=== PATIENT | female | born 1980 | race Caucasian/White ===

== ENCOUNTER → 2019-06-13 | Outpatient (REF) | payer BC ==
[2019-06-13 14:11] LABS: C REACTIVE PROTEIN QUANTITATIV < 0.30 MG/DL (0.00-0.30); CPK CREATINE PHOSPHOKINASE 68 U/L (26-192); RHEUMATOID FACTOR QUANT < 10.0 IU/ML (<15.0); TOTAL PROTEIN 7.4 GM/DL (6.4-8.2)
[2019-06-15 10:01] LABS: ALBUMIN 4.31 GM/DL (3.29-5.55); ALBUMIN % 58.3 % (55.8-66.1); ALPHA-1-GLOBULIN % 4.6 % (2.9-4.9); ALPHA-1-GLOBULINS 0.34 GM/DL (0.17-0.41); ALPHA-2-GLOBULINS 0.83 GM/DL (0.42-0.99); ALPHA-2-GLOBULINS % 11.2 % (7.1-11.8); BETA-1-GLOBULINS 0.53 GM/DL (0.28-0.60); BETA-1-GLOBULINS % 7.1 % (4.7-7.2); BETA-2-GLOBULINS 0.38 GM/DL (0.19-0.55); BETA-2-GLOBULINS % 5.2 % (3.2-6.5); GAMMA GLOBULIN % 13.6 % (11.1-18.8); GAMMA GLOBULINS 1.01 GM/DL (0.65-1.58)
[2019-06-20 08:06] LABS: CYCLIC CITRULLINATED PEPTIDE 71 units (0-19); SSA SJOGRENS A <0.2 AI (0.0-0.9); SSB SJOGRENS B <0.2 AI (0.0-0.9)
== END ==
LOC: M SFHCRHEU 09:47
PROVIDERS: ATTEND Internal Medicine
DX: R76.8 Other specified abnormal immunological findings in serum (principal); M79.7 Fibromyalgia

== ENCOUNTER → 2019-07-04 | Outpatient (CLI) | payer BC ==
[2019-07-04 13:59] LABS: THYROID STIMULATING HORMONE 0.856 uIU/ML (0.358-3.740); TOTAL T3 118.6 NG/DL (60.0-181.0)
[2019-07-05 07:07] LABS: THYROID PEROXIDASE ANTIBODY < 28.0 U/ML (<60.0)
[2019-07-05 07:08] LABS: THYROGLOBULIN ANTIBODY < 15.0 U/ML (<60.0)
[2019-07-11 18:11] LABS: IGE RECEPTOR ABY 1 11.8 (<10)
== END ==
LOC: M LAB 11:44
PROVIDERS: ATTEND Allergy & Immunology Allergy
DX: L50.1 Idiopathic urticaria (principal)

== ENCOUNTER → 2019-07-06 | Outpatient (REF) | payer BC ==
[2019-07-06 20:22] LABS: APPEARANCE, URINE CLEAR (CLEAR); BACTERIA, URINE AUTO 1+ (NEGATIVE); BILIRUBIN, URINE AUTO NEGATIVE (NEGATIVE); BLOOD, URINE BLOOD NEGATIVE (NEGATIVE); COLOR, URINE YELLOW (YELLOW); GLUCOSE, URINE (UA) AUTO NEGATIVE (NEGATIVE); KETONE, URINE AUTO NEGATIVE (NEGATIVE); LEUKOCYTE ESTERASE, URINE AUTO NEGATIVE (NEGATIVE); NITRITE, URINE AUTO NEGATIVE (NEGATIVE); PROTEIN, URINE AUTO NEGATIVE (NEGATIVE); RBC, URINE AUTO 0 /HPF (0-3); SPECIFIC GRAVITY URINE AUTO 1.004 (1.002-1.035); SQUAMOUS EPITHELIAL CELL UR AU 1 /HPF (0-6); UROBILINOGEN, URINE AUTO 0.2 mg/dL (0.0-2.0); WBC, URINE AUTO 1 /HPF (0-3)
== END ==
LOC: M SFHCRHEU 08:37
PROVIDERS: ATTEND Internal Medicine
DX: L50.8 Other urticaria (principal)

== ENCOUNTER → 2019-11-03 | Outpatient (CLI) | payer BC ==
[~2019-11-03] MED LIST: AMBI5TAB PO; CYAN2500 SL; GASTROGRAFIN SOLUTION 30ML (Q9963) As Ordered ONE; HYDR1CAP25 PO; ISOVUE-370 76% 100ML VIAL As Ordered ONE; LEVOTAB10 PO; NEUR100C PO; PANT40TA29 PO; PROAAER10 INH
--- NOTE | 2019-11-10 11:48 | REP ---
CT ABDOMEN AND PELVIS WITH INTRAVENOUS (IV) AND ORAL CONTRAST HISTORY: Abnormal liver function studies. COMPARISON: No comparison abdominal imaging. CT CONTRAST DOSE: 100 mL of intravenous Isovue-[address] FINDINGS: Preliminary digital beamster radiograph shows clips in the right upper quadrant. The patient is status post gastric bypass procedure. There is minimal diffuse fatty infiltration of the liver. No focal liver mass lesion is seen. There are two small cysts in the superior aspect of the spleen. These measure 8 mm and 13 mm in greatest diameter respectively. The spleen is otherwise unremarkable. Normal adrenal glands are seen. No abnormality is noted in the pancreas. There is focal scarring at the upper and lower pole of the right kidney. There is an upper pole calculus of the right kidney associated with a cyst at the level of the upper pole scarring. The calculus measures 10 mm. The cyst measures 24 mm. This may be a calculus associated with a calyceal diverticulum. No hydronephrosis is seen on either side. No other calculus is seen. No retroperitoneal mass or adenopathy is seen. Normal appendix is seen retrocecal. Small and large intestinal bowel loops are unremarkable. A vaginal tampon is noted in place. No uterine or ovarian abnormality is seen. Urinary bladder is largely empty, but appears intact. No abdominal wall defect is seen. No bony destructive lesion. IMPRESSION: Mild diffuse fatty infiltration of the liver. Focal scarring right kidney. Stone possibly associated with a calyceal diverticulum right kidney. Post cholecystectomy and gastric bypass. Otherwise no significant finding. MTDD
== END ==
LOC: M RAD 13:09
PROVIDERS: ATTEND Internal Medicine Hematology & Oncology
DX: D50.9 Iron deficiency anemia, unspecified (principal); Z98.84 Bariatric surgery status

== ENCOUNTER → 2019-11-23 | Outpatient (CLI) | payer BC ==
[~2019-11-23] MED LIST changes: -GASTROGRAFIN SOLUTION 30ML (Q9963) As Ordered ONE; -ISOVUE-370 76% 100ML VIAL As Ordered ONE
--- NOTE | 2019-11-23 15:46 | REP ---
INDICATION: LT BREAST MASS,US GUIDED BIOPSY COMPARISON: Comparison sonography at [facility] October 22, 2021 showed a isoechoic to hypoechoic 1 cm nodule superficially at the site of a palpable lump. The patient is referred for ultrasound-guided needle biopsy.. TECHNIQUE: Pre-procedure sonography is performed. Patient reports palpable lumps in the 2 o'clock position the left breast are still present. FINDINGS: High-resolution soft tissue sonography in the 2 o'clock position in the left breast in the area of the palpable lump shows normal fibroglandular and subcutaneous tissue. No hypoechoic nodule, cyst, mass, or architectural distortion is seen by ultrasound. No sonographic target was identified. Accordingly, the biopsy was deferred. IMPRESSION: No sonographic target is identified. BI-RADS category 1 negative findings at the site of the palpable lump. Clinical correlation is advised. Follow-up mammography can be considered. There may be a role for breast MRI scanning in this patient with persistent history of palpable lump on self breast exam. If symptoms persist or progress, follow-up sonography could be performed as well. <Electronically signed by Jared Ramirez > 11/23/19 1753
== END ==
LOC: M WHCPRO 14:18
PROVIDERS: ATTEND Internal Medicine Hematology & Oncology
DX: N63.21 Unspecified lump in the left breast, upper outer quadrant (principal); Z53.9 Procedure and treatment not carried out, unspecified reason

== ENCOUNTER → 2019-12-27 | Outpatient (CLI) | payer BC ==
[~2019-12-27] MED LIST changes: +ISOVUE-370 76% 100ML VIAL As Ordered ONE
--- NOTE | 2019-12-28 05:23 | REP ---
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 COMPARISON: None TECHNIQUE: Axial contrast enhanced images from the thoracic inlet to the upper abdomen with coronal and sagittal reformations using 75 ml Isovue [address] intravenous [address] examination was performed using the following dose reduction techniques: Automated exposure control, adjustment of mA and/or kv according to the patient's size, and use of iterative reconstruction technique. FINDINGS: No significant axillary, hilar, or mediastinal adenopathy is appreciated. Further evaluation of the mediastinum demonstrates minimal atherosclerotic changes to the thoracic aorta and coronary arteries without aortic aneurysm, dissection, cardiomegaly or pericardial effusion. The bilateral lung calderon are well aerated with minimal posterior basilar dependent changes suggested. No consolidation, suspicious nodule or mass lesion. Mild early emphysematous changes cannot be excluded. Tracheobronchial tree is patent. No effusion. No pneumothorax. Surrounding musculoskeletal structures are intact. Upper abdomen demonstrates normal bilateral adrenal glands along with evidence for prior cholecystectomy and gastric bypass surgery. IMPRESSION: 1. No evidence for adenopathy. 2. Lung calderon suggest mild early emphysematous changes. <Electronically signed by Paul Arenas > 12/28/19 1253
== END ==
LOC: M RAD 14:06
PROVIDERS: ATTEND Specialist
DX: D50.9 Iron deficiency anemia, unspecified (principal)
CPT/HCPCS: 71260; Q9967

== ENCOUNTER → 2019-12-27 | Outpatient (CLI) | payer BC ==
[~2019-12-27] MED LIST changes: -ISOVUE-370 76% 100ML VIAL As Ordered ONE
[2019-12-27 16:07] LABS: RHEUMATOID FACTOR QUANT < 10.0 IU/ML (<15.0)
[2019-12-27 16:08] LABS: TOTAL PROTEIN 7.2 GM/DL (6.4-8.2)
[2019-12-27 16:20] LABS: VITAMIN B12 LEVEL 257 PG/ML
[2019-12-27 16:21] LABS: FOLATE 5.9 NG/ML
[2019-12-27 16:50] LABS: HEMOGLOBIN A1c 4.9 %
[2019-12-28 15:41] LABS: ALBUMIN 4.44 GM/DL (3.29-5.55); ALBUMIN % 61.6 % (55.8-66.1); ALPHA-1-GLOBULIN % 4.6 % (2.9-4.9); ALPHA-1-GLOBULINS 0.33 GM/DL (0.17-0.41); ALPHA-2-GLOBULINS 0.77 GM/DL (0.42-0.99); ALPHA-2-GLOBULINS % 10.7 % (7.1-11.8); BETA-1-GLOBULINS 0.42 GM/DL (0.28-0.60); BETA-1-GLOBULINS % 5.8 % (4.7-7.2); BETA-2-GLOBULINS 0.35 GM/DL (0.19-0.55); BETA-2-GLOBULINS % 4.8 % (3.2-6.5); GAMMA GLOBULIN % 12.5 % (11.1-18.8)
== END ==
LOC: M LAB 14:04
PROVIDERS: ATTEND Psychiatry & Neurology Neurology
DX: G90.09 Other idiopathic peripheral autonomic neuropathy (principal)

== ENCOUNTER → 2020-01-24 | Outpatient (CLI) | payer BC ==
[~2020-01-24] MED LIST changes: +HYDR-3363; +vitamin b-12 SQ
== END ==
LOC: M LABSMTC 12:18
PROVIDERS: ATTEND Anesthesiology
DX: Z01.812 Encounter for preprocedural laboratory examination (principal); Z20.828 Contact with and (suspected) exposure to other viral communicable diseases

== ENCOUNTER 2020-01-29 12:50 | Day surgery (SDC) | payer BC ==
[~2020-01-29] VITALS: Ht 162.6 cm; Wt 78.7 kg
[~2020-01-29 12:50] MED LIST changes: +NS 1,000 ML IV ONE
[2020-01-29] MEDS ORDERED: fentaNYL 100 MCG/2 ML INJECTION (J3010) As Ordered ONE (15:04)
[2020-01-29] MEDS ORDERED: propofoL 200 MG/20 ML VIAL As Ordered ONE (15:09)
[2020-01-29] MEDS ORDERED: LIDOCAINE 2% 100MG/5ML SDV (FOR ANES.) As Ordered ONE (15:30)
--- NOTE | 2020-01-29 16:15 | ROOR ---
Patient Name: Chloe Garcia Procedure Date: 01/29/2020 1:20 PM Date of : 1980 Age: 39 Room: [facility] Gender: Female Note Status: Finalized Procedure: Upper GI endoscopy Indications: Epigastric abdominal pain, Persistent vomiting Providers: Jose Elias Sales MD Referring MD: Thelma Lin Requesting Provider: Medicines: Monitored Anesthesia Care Complications: No immediate complications. Procedure: Pre-Anesthesia Assessment: - Prior to the procedure, a History and Physical was performed, and patient medications and allergies were reviewed. The patient is competent. The risks and benefits of the procedure and the sedation options and risks were discussed with the patient. All questions were answered and informed consent was obtained. Patient identification and proposed procedure were verified by the physician, the nurse and the anesthesiologist in the procedure room. Mental Status Examination: alert and oriented. Airway Examination: normal oropharyngeal airway and neck mobility. Respiratory Examination: clear to auscultation. CV Examination: normal. Prophylactic Antibiotics: The patient does not require prophylactic antibiotics. Prior Anticoagulants: The patient has taken no previous anticoagulant or antiplatelet agents. ASA Grade Assessment: II - A patient with mild systemic disease. After reviewing the risks and benefits, the patient was deemed in satisfactory condition to undergo the procedure. The anesthesia plan was to use monitored anesthesia care (MAC). Immediately prior to administration of medications, the patient was re-assessed for adequacy to receive sedatives. The heart rate, respiratory rate, oxygen saturations, blood pressure, adequacy of pulmonary ventilation, and response to care were monitored throughout the procedure. The physical status of the patient was re-assessed after the procedure. The Endoscope was introduced through the mouth, and advanced to the second part of duodenum. The upper GI endoscopy was accomplished without difficulty. The patient tolerated the procedure well. Findings: The examined esophagus was normal. Evidence of a gastric bypass was found. A gastric pouch with a small size was found. The staple line appeared intact. The gastrojejunal anastomosis was characterized by congestion, edema, friable mucosa, severe stenosis, ulceration and an intact staple line. This was traversed. The wkbst-vo-gnltyyd limb measured 5 cm from the anastomosis and. The jejunojejunal anastomosis was characterized by congestion, erosion and erythema. The cfujpjtv-vc-knmpgud limb was not examined as it could not be found. Biopsies were taken with a cold forceps for histology. Biopsies were taken with a cold forceps for Helicobacter pylori testing. Verification of patient identification for the specimen was done by the physician and nurse using the patient's name, date and medical record number. Estimated blood loss was minimal. Normal mucosa was found in the jejunum. Impression: - Normal esophagus. - Gastric bypass with a small-sized pouch and intact staple line. Gastrojejunal anastomosis characterized by congestion, edema, friable mucosa, ulceration, severe stenosis and an intact staple line. Biopsied. - Normal mucosa was found in the jejunum. Recommendation: - Patient has a contact number available for emergencies. The signs and symptoms of potential delayed complications were discussed with the patient. Return to normal activities tomorrow. Written discharge instructions were provided to the patient. - Clear liquid diet for 1 day, then advance as tolerated to Post gastric bypass diet (small frequent meals and avoid fatty/ fried foods). - Continue present medications. - Use Protonix (pantoprazole) 40 mg PO twice daily - to be taken in morning (1/2 hour before breakfast) and at bedtime ( atleast 3 hours after last meal) for 3 months. - Use sucralfate suspension 1 gram PO QID for 4 weeks. - Repeat upper endoscopy in 3 months to evaluate the response to therapy and possible dilation of stricture. - Return to GI clinic in [facility] (address [address], [address], [place], [facility]) in 4 -- 6 weeks. Please call GI clinic @ [phone] for apppointment date and time. - Return to primary care physician. Procedure Code(s): --- Professional --- 18063, Esophagogastroduodenoscopy, flexible, transoral; with biopsy, single or multiple Diagnosis Code(s): --- Professional --- K28.9, Gastrojejunal ulcer, unspecified as acute or chronic, without hemorrhage or perforation K95.89, Other complications of other bariatric procedure Z98.84, Bariatric surgery status R10.13, Epigastric pain R11.15, Cyclical vomiting syndrome unrelated to migraine CPT copyright 2019 [employer]. All rights reserved. The codes documented in this report are preliminary and upon remote inpatient coder review may be revised to meet current compliance requirements. Jose Elias Sales MD Jose Elias Sales MD 01/29/2020 4:15:32 PM Electronically signed by Jose Elias Sales MD Number of Addenda: 0 Note Initiated On: 01/29/2020 1:20 PM Estimated Blood Loss: Estimated blood loss was minimal.
[2020-01-29 16:22] VITALS: BP 114/77
== END 2020-01-29 16:24 | disposition home or self-care (01) ==
LOC: M OPP 12:50
PROVIDERS: ATTEND Internal Medicine Gastroenterology
DX: K28.9 Gastrojejunal ulcer, unspecified as acute or chronic, without hemorrhage or perforation (principal); K95.89 Other complications of other bariatric procedure; Z98.84 Bariatric surgery status; R10.13 Epigastric pain; R11.15 Cyclical vomiting syndrome unrelated to migraine; K74.60 Unspecified cirrhosis of liver; M79.7 Fibromyalgia; F17.210 Nicotine dependence, cigarettes, uncomplicated; Z79.899 Other long term (current) drug therapy; Z87.442 Personal history of urinary calculi
CPT/HCPCS: 43239; 88305; J3010

== ENCOUNTER → 2020-03-13 | Outpatient (REF) | payer BC ==
[~2020-03-13] MED LIST changes: -NS 1,000 ML IV ONE
[2020-03-13 12:52] LABS: BASO # 0.1 10^3/uL (0.0-0.2); BASO % 0.7 % (0.0-1.0); EOS # 0.1 10^3/uL (0.0-0.5); EOS % 1.1 % (0.0-3.0); HEMATOCRIT 43.4 % (36.0-47.0); HEMOGLOBIN 13.9 g/dl (12.0-15.5); LYMPH # 1.5 10^3/uL (1.5-5.0); LYMPH % 20.3 % (24.0-44.0); MEAN CORPUSCULAR HEMOGLOBIN 29.7 pg (27.0-33.0); MEAN CORPUSCULAR VOLUME 92.7 fl (80.0-96.0); MONO # 0.4 10^3/uL (0.0-0.8); MONO % 4.9 % (0.0-5.0); NEUTROPHILS # 5.4 10^3/uL (1.5-8.5); NEUTROPHILS % 72.7 % (36.0-66.0); PLATELET COUNT, AUTOMATED 158 10^3/uL (150-450); RED BLOOD COUNT 4.68 10^6/uL (4.00-5.40); WHITE BLOOD COUNT 7.4 10^3/uL (4.0-10.0)
[2020-03-13 13:20] LABS: ALBUMIN 4.2 GM/DL (3.2-5.2); ALT/SGPT 84 U/L (12-78); BILIRUBIN,TOTAL 0.4 MG/DL (0.2-1.0); BLOOD UREA NITROGEN 5 MG/DL (7-18); CALCIUM LEVEL 9.2 MG/DL (8.5-10.1); CARBON DIOXIDE LEVEL 25 MEQ/L (21-32); CHLORIDE LEVEL 108 MEQ/L (98-107); COMPLEMENT C3 105 MG/DL (90-180); COMPLEMENT C4 21 MG/DL (10-40); CPK CREATINE PHOSPHOKINASE 34 U/L (26-192); CREATININE FOR GFR 0.56 MG/DL (0.55-1.30); GLOMERULAR FILTRATION RATE > 60.0 (>58); GLUCOSE, FASTING 90 MG/DL (70-100); POTASSIUM SERUM 3.8 MEQ/L (3.5-5.1); RHEUMATOID FACTOR QUANT 10.1 IU/ML (<15.0); SODIUM LEVEL 140 MEQ/L (136-145); TOTAL PROTEIN 7.4 GM/DL (6.4-8.2)
[2020-03-13 13:30] LABS: ERYTHROCYTE SEDIMENTATION RATE 10 mm/hr (0-20)
[2020-03-13 14:53] LABS: THYROID PEROXIDASE ANTIBODY < 28.0 U/ML (<60.0); TOTAL 25(OH) VITAMIN D 11.9 NG/ML (30.0-100.0)
[2020-03-13 15:04] LABS: HEPATITIS B SURFACE ANTIGEN NEGATIVE (NEGATIVE)
[2020-03-13 15:32] LABS: HEPATITIS C VIRUS ABY INDEX < 0.0 INDEX (<0.8)
[2020-03-19 20:11] LABS: ANA (HEP2) Negative (.); ANTI DS-DNA AB Negative (Negative); ANTI-MITOCHONDRIAL ANTIBODY <20.0 Units (0.0-20.0); ANTI-SMOOTH MUSCLE ANTIBODY 5 Units (0-19); BETA-2 GLYCOPROTEIN I ABY IGA <9 (0-25); BETA-2 GLYCOPROTEIN I ABY IGG <9 (0-20); BETA-2 GLYCOPROTEIN I ABY IGM <9 (0-32); CARDIOLIPIN IGA ANTIBODY <9 APL U/mL (0-11); CARDIOLIPIN IGG ANTIBODY <9 GPL U/mL (0-14); CARDIOLIPIN IGM ANTIBODY <9 MPL U/mL (0-12); CYCLIC CITRULLINATED PEPTIDE 51 units (0-19); HEPATITIS B CORE ANTIBODY IGG Negative (Negative); HLA-B27 Negative (.); IgG P18 AB Absent (.); IgG P23 AB Present (.); IgG P28 AB Absent (.); IgG P30 AB Absent (.); IgG P39 AB Absent (.); IgG P41 AB Absent (.); IgG P45 AB Absent (.); IgG P66 AB Absent (.); IgG P93 AB Absent (.); IgM P23 AB Absent (.); IgM P39 AB Absent (.); IgM P41 AB Absent (.); LYME IgG WB INTERPRETATION Negative (.); LYME IgM WB INTERPRETATION Negative (.); RNP ANTIBODY < 0.2 AI (0.0-0.9); SMITHS ANTIBODY < 0.2 AI (0.0-0.9); SSA SJOGRENS A <0.2 AI (0.0-0.9); SSB SJOGRENS B <0.2 AI (0.0-0.9); TRYPTASE 3.4 ug/L (2.2-13.2)
== END ==
LOC: M SFHCRHEU 10:10
PROVIDERS: ATTEND Internal Medicine
DX: M25.50 Pain in unspecified joint (principal); R53.82 Chronic fatigue, unspecified; L29.9 Pruritus, unspecified

== ENCOUNTER → 2020-03-27 | Outpatient (REF) | payer BC ==
[2020-03-27 18:18] LABS: ALBUMIN 3.9 GM/DL (3.2-5.2); ALT/SGPT 81 U/L (12-78); BILIRUBIN,DIRECT < 0.1 MG/DL (0.0-0.2); BILIRUBIN,TOTAL 0.2 MG/DL (0.2-1.0)
[2020-03-27 18:24] LABS: VITAMIN B12 LEVEL 346 PG/ML
[2020-03-27 18:25] LABS: FOLATE 5.5 NG/ML
== END ==
LOC: M LAB REF 16:26
PROVIDERS: ATTEND Internal Medicine Gastroenterology
DX: R10.13 Epigastric pain (principal)

== ENCOUNTER → 2020-04-03 | Outpatient (CLI) | payer BC ==
[2020-04-03 08:55] VITALS: BP 128/82
--- NOTE | 2020-04-03 16:22 | REP ---
INDICATION: N63.0 LT BREAST MASS,US GUIDED BIOPSY. Palpable abnormality in the left breast at 1 o'clock position, 6 cm from the nipple. COMPARISON: Comparison sonography November 23, 2019.. TECHNIQUE: Sonographic guidance. FINDINGS: Sonographic guidance is provided to Dr. Desir performed ultrasound monitored, palpation directed needle biopsy procedure and clip placement. IMPRESSION: Sonographic guidance. <Electronically signed by Jared Ramirez > 04/03/20 [id number]
--- NOTE | 2020-04-05 10:23 | REP ---
INDICATION: N63.0 LT BREAST MASS,POST US GUIDED BIOPSY. COMPARISON: Comparison mammography December 25, 2019. TECHNIQUE: Craniocaudal and mediolateral views of the left breast are obtained post biopsy. This mammogram was interpreted with the aid of an FDA-approved computer-aided detection system. FINDINGS: Two views of the left breast demonstrate a needle biopsy marker clip in the upper-outer quadrant of the left breast. IMPRESSION: There is a needle biopsy marker clip in the upper-outer quadrant of the left breast. RECOMMENDATION: None. <Electronically signed by Jared Ramirez > 04/05/20 1029
--- NOTE | 2020-04-06 14:35 | ROOPDOC ---
[facility] Report Of Operation Report of Operation DATE OF PROCEDURE: 04/03/20 DIAGNOSIS: left breast palpable lesion PROCEDURE: Ultrasound guided and palpation guided biopsy of left breast palpable lesion with clip placement SURGEON: Criss Rausch BLOOD LOSS: minimal COMPLICATIONS: none Lidocaine 1% LOT [id number] Expiration 05/2023 Sodium Bicarbonate 4% LOT [id number] Expiration 05/2020 Hydromark clip LOT [id number] Expiration 11/2022 SHAPE : 3 Bx device: BARD [id number] x10 cm LOT [id number] Expiration 12/2022 Informed consent was obtained. The most common risk and possible complications including bleeding, hematoma, bruising, infection, injury to surrounding structures were explained to the patient and the patient expressed understanding. Patient was placed on the bed in the supine position. Appropriate time out was done stating patients name, date of , and the procedure to be performed. Location of the palpable mass in the left breast at 1:00 6CFN was confirmed by the patient and me. The left breast was prepped and draped in the usual fashion. The ultrasound was used to assure safe biopsy trajectory and to avoid lung injury. Plain Lidocaine 1% and 8.4% sodium bicarbonate 10:1 mix was used to anesthetize the skin, the biopsy site and tissues along the anticipated biopsy tract. Small skin incision was made with blade number 11. BARD Marquee 14G cannula with introducer ([id number]) was inserted through the incision and advanced under the ultrasound guidance to position immediately adjacent to the lesion. Next, the introducer was removed and BARD Marquee 14G biopsy device was places in the cannula. Pre-biopsy imaging, and post-biopsy imaging were captured. Five good core biopsies were taken at various levels of the lesion. Specimen was placed in formaldehyde, labeled with appropriate biopsy site and patients name, and sent to pathology for evaluation. Next, the biopsy device was withdrawn and a clip introducer was inserted into the biopsy site via the cannula. The SHAPE 3 Hydromark clip was deployed under sonographic guidance. Post-clip placement image was captured. Manual pressure over the biopsy cavity and tract was held after the clip introducer was withdrawn. No bleeding was noted upon removal of the pressure. Post-biopsy mammogram of the left breast was obtained and showed clip in expected position. Postprocedural dressing was placed. Patient tolerated procedure well. Discharge instructions were discussed with the patient and the patient expressed understanding. CRISS RAUSCH DO Apr 06, 2020 14:35
== END ==
LOC: M WHCPRO 07:36
PROVIDERS: ATTEND Surgery
DX: N60.82 Other benign mammary dysplasias of left breast (principal); N63.20 Unspecified lump in the left breast, unspecified quadrant

== ENCOUNTER → 2020-04-05 | Outpatient (CLI) | payer BC ==
--- NOTE | 2020-04-05 17:22 | REP ---
INDICATION: ABNORMAL LIVER STUDIES, EPIGASTRIC PAIN. Abnormal findings on diagnostic imaging of the digestive tract. COMPARISON: Comparison CT study abdomen pelvis November 03, 2019.. TECHNIQUE: Axial and coronal T1 and T2 weighted sequences include spin echo, fast spin echo, diffusion, in and out of phase, and dynamically acquired sequential postcontrast images. Gadolinium enhancement dose is 15 mL of intravenous ProHance. FINDINGS: No focal liver mass lesion is seen. The gallbladder is surgically absent. There is a calculus within a cystic area in the upper pole the right kidney consistent with a caliceal diverticulum containing a calculus. This is unchanged from the comparison CT study. There is some cortical scarring of the right kidney. No other renal abnormality is observed. No pancreatic abnormality is seen. There are small. There are 2 small peripheral cyst at the superior aspect of the spleen. The largest of these measures 1.4 cm in greatest diameter. There is no evidence of ascites or upper abdominal adenopathy. The common bile duct is 10 mm in greatest diameter which is at the upper range of normal post cholecystectomy. There is minimal prominence of the intrahepatic bile ducts unchanged from the comparison CT study. No adrenal lesion is observed. IMPRESSION: Post cholecystectomy. Borderline common bile duct, 10 mm. 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 Some mild cortical scarring of the right kidney. Small capsular cysts superior aspect of the spleen. Otherwise negative. <Electronically signed by Jared Ramirez > 04/05/20 [id number]
== END ==
LOC: M PLARAD 13:56
PROVIDERS: ATTEND Internal Medicine Gastroenterology
DX: R10.13 Epigastric pain (principal); R93.3 Abnormal findings on diagnostic imaging of other parts of digestive tract; R94.5 Abnormal results of liver function studies; Z90.49 Acquired absence of other specified parts of digestive tract; N20.0 Calculus of kidney; D73.4 Cyst of spleen

== ENCOUNTER → 2020-06-23 | Outpatient (CLI) | payer BC | LOC: M LABSMTC 09:11 | PROVIDERS: ATTEND Anesthesiology | DX: Z01.818 Encounter for other preprocedural examination (principal); Z20.822 Contact with and (suspected) exposure to COVID-19 ==

== ENCOUNTER 2020-06-28 06:07 | Day surgery (SDC) | payer BC ==
[~2020-06-28] VITALS: Ht 162.6 cm; Wt 77.9 kg
[~2020-06-28 06:07] MED LIST changes: +LIDOCAINE 1% MDV 20ML VIAL SQ PRN; +LR 1,000 ML IV ONE; +NS 1,000 ML IV ONE
[2020-06-28] MEDS ORDERED: ISOVUE-300 61% 50ML VIAL As Ordered ONE (06:59)
[2020-06-28] MEDS ORDERED: fentaNYL 100 MCG/2 ML INJECTION (J3010) As Ordered ONE (07:10)
[2020-06-28] MEDS ORDERED: MIDAZOLAM INJ 2MG/2ML VIAL (J2250 PER 1MG) As Ordered ONE (07:10)
[2020-06-28] MEDS ORDERED: ROCURONIUM BROMIDE 50 MG/5 ML VIAL As Ordered ONE (07:10)
[2020-06-28] MEDS ORDERED: propofoL 200 MG/20 ML VIAL As Ordered ONE (07:10)
[2020-06-28] MEDS ORDERED: LIDOCAINE 2% 100MG/5ML SDV (FOR ANES.) As Ordered ONE (07:10)
[2020-06-28] MEDS ORDERED: dexameTHASONE 4 MG/ML 1ML VIAL (J1100 PER 1MG) As Ordered ONE (07:19)
[2020-06-28] MEDS ORDERED: ONDANSETRON 4MG/2ML VIAL As Ordered ONE (07:19)
[2020-06-28] MEDS ORDERED: METOCLOPRAMIDE INJ 10MG/2ML VIAL (J2765 PER 1) As Ordered ONE (07:54)
[2020-06-28] MEDS ORDERED: SUGAMMADEX SODIUM 500 MG/5 ML VIAL (BRIDION) As Ordered ONE (07:54)
[2020-06-28] MEDS ORDERED: PHENYLephrine 500MCG 5ML (100MCG/ML) SYRINGE As Ordered ONE (07:55)
--- NOTE | 2020-06-28 08:55 | ROOR ---
Patient Name: Chloe Garcia Procedure Date: 06/28/2020 7:50 AM Date of : 1980 Age: 40 Room: [facility] Gender: Female Note Status: Finalized Procedure: ERCP Indications: Biliary dilation on Computed Tomogram Scan, Abnormal MRCP Providers: Jose Elias Sales MD Referring MD: Jose Elias Sales MD Requesting Provider: Medicines: Monitored Anesthesia Care Complications: No immediate complications. Procedure: Pre-Anesthesia Assessment: - Prior to the procedure, a History and Physical was performed, and patient medications and allergies were reviewed. The patient is competent. The risks and benefits of the procedure and the sedation options and risks were discussed with the patient. All questions were answered and informed consent was obtained. Patient identification and proposed procedure were verified by the physician, the nurse and the anesthesiologist in the procedure room. Mental Status Examination: alert and oriented. Airway Examination: normal oropharyngeal airway and neck mobility. Respiratory Examination: clear to auscultation. CV Examination: normal. Prophylactic Antibiotics: The patient does not require prophylactic antibiotics. Prior Anticoagulants: The patient has taken no previous anticoagulant or antiplatelet agents. ASA Grade Assessment: II - A patient with mild systemic disease. After reviewing the risks and benefits, the patient was deemed in satisfactory condition to undergo the procedure. The anesthesia plan was to use monitored anesthesia care (MAC). Immediately prior to administration of medications, the patient was re-assessed for adequacy to receive sedatives. The heart rate, respiratory rate, oxygen saturations, blood pressure, adequacy of pulmonary ventilation, and response to care were monitored throughout the procedure. The physical status of the patient was re-assessed after the procedure. The Endoscope was introduced through the mouth, and advanced to the duodenum and used to locate the major papilla. The ERCP was accomplished without difficulty. The patient tolerated the procedure well. Findings: The grade checker film was normal. A standard esophagogastroduodenoscopy scope was used for the examination of the upper gastrointestinal tract. The scope was passed under direct vision through the upper GI tract. The examined esophagus was normal. A standard esophagogastroduodenoscopy scope was used for the examination of the upper gastrointestinal tract. The scope was passed under direct vision through the upper GI tract. Evidence of a Jas-en-Y gastrojejunostomy was found. The gastrojejunal anastomosis was characterized by erythema, moderate stenosis and an intact staple line. This was traversed. The zwctd-wd-vcozqxw limb was characterized by healthy appearing mucosa. The jejunojejunal anastomosis was characterized by healthy appearing mucosa. The hocgzuxm-of-rlesash limb was examined 45 cm from the anastomosis and was characterized by healthy appearing mucosa. A TTS dilator was passed through the scope. Dilation with an 18-19-20 mm anastomotic balloon dilator was performed under fluoroscopic guidance at the anastomosis. The dilation site was examined following endoscope reinsertion and showed moderate improvement in luminal narrowing. A standard esophagogastroduodenoscopy scope was used for the examination of the upper gastrointestinal tract. The scope was passed under direct vision through the upper GI tract. -- Both the anastomotic limbs were examinaed under fluoroscopy but could not identify / locate the ampulla. Impression: - Normal esophagus. - Jas-en-Y gastrojejunostomy with gastrojejunal anastomosis characterized by erythema, moderate stenosis and an intact staple line. - Dilation performed at the anastomosis. - Both the anastomotic limbs were examinaed under fluoroscopy but could not identify / locate the ampulla. Recommendation: - The patient will be observed post-procedure, until all discharge criteria are met. - Patient has a contact number available for emergencies. The signs and symptoms of potential delayed complications were discussed with the patient. Return to normal activities tomorrow. Written discharge instructions were provided to the patient. - Avoid aspirin and nonsteroidal anti-inflammatory medicines. - Clear liquid diet for 1 day, then advance as tolerated to Post gastric bypass diet (small frequent meals and avoid fatty/ fried foods). - Use Protonix (pantoprazole) 40 mg PO twice daily - to be taken in morning (1/2 hour before breakfast) and at bedtime ( atleast 3 hours after last meal) for 8 weeks. - Telephone GI clinic if symptomatic. - Return to primary care physician. Procedure Code(s): --- Professional --- 23849, Esophagogastroduodenoscopy, flexible, transoral; with dilation of gastric/duodenal stricture(s) (eg, balloon, bougie) 67419, 26, Intraluminal dilation of strictures and/or obstructions (eg, esophagus), radiological supervision and interpretation Diagnosis Code(s): --- Professional --- Z98.0, Intestinal bypass and anastomosis status K83.8, Other specified diseases of biliary tract R93.2, Abnormal findings on diagnostic imaging of liver and biliary tract CPT copyright 2019 [employer]. All rights reserved. The codes documented in this report are preliminary and upon outer diameter grinder review may be revised to meet current compliance requirements. Jose Elias Sales MD Jose Elias Sales MD 06/28/2020 8:54:56 AM Electronically signed by Jose Elias Sales MD Number of Addenda: 0 Note Initiated On: 06/28/2020 7:50 AM Estimated Blood Loss: Estimated blood loss: none.
--- NOTE | 2020-06-28 09:06 | REP ---
INDICATION: ERCP AND EGD IN OR. COMPARISON: None. TECHNIQUE: Multiple C-arm views performed of the abdomen. FINDINGS: An endoscope is visualized overlying the abdomen. Air-filled small bowel is present. IMPRESSION: 27 seconds fluoroscopy time utilized. <Electronically signed by Orlando Queen > 06/28/20 0903
[2020-06-28] MEDS ORDERED: PERCOCET 5MG/325MG TAB PO PRN (09:15)
[2020-06-28] MEDS ORDERED: LR 1,000 ML IV SCH (09:15)
[2020-06-28] MEDS ORDERED: ONDANSETRON 4MG/2ML VIAL IV PRN (09:15)
[2020-06-28] MEDS: fentaNYL 100 MCG/2 ML INJECTION (J3010) IV PRN ×4 (09:17→09:33)
[2020-06-28 10:20] VITALS: BP 116/73
[2020-07-04] MEDS ORDERED: URSO300C3 PO (08:46)
== END 2020-06-28 10:37 | disposition home or self-care (01) ==
LOC: M SDC 06:07
PROVIDERS: ATTEND Internal Medicine Gastroenterology
DX: K83.8 Other specified diseases of biliary tract (principal); R93.2 Abnormal findings on diagnostic imaging of liver and biliary tract; Z98.0 Intestinal bypass and anastomosis status; F32.9 Major depressive disorder, single episode, unspecified; E07.9 Disorder of thyroid, unspecified; R00.2 Palpitations; K74.60 Unspecified cirrhosis of liver; R94.5 Abnormal results of liver function studies; R10.9 Unspecified abdominal pain; R11.10 Vomiting, unspecified; E53.8 Deficiency of other specified B group vitamins; M54.9 Dorsalgia, unspecified; M79.7 Fibromyalgia; Z87.442 Personal history of urinary calculi; F17.210 Nicotine dependence, cigarettes, uncomplicated; Z98.84 Bariatric surgery status; Z79.899 Other long term (current) drug therapy
CPT/HCPCS: 43245; 74330; J1100; J2250; J2370; J2405; J2765; J3010; Q9967

== ENCOUNTER → 2020-09-24 | Outpatient (CLI) | payer BC ==
[~2020-09-24] MED LIST changes: -LIDOCAINE 1% MDV 20ML VIAL SQ PRN; -LR 1,000 ML IV ONE; -NS 1,000 ML IV ONE; +URSO300C3 PO
[2020-09-24 11:38] LABS: BASO # 0.1 10^3/uL (0.0-0.2); BASO % 0.8 % (0.0-1.0); EOS # 0.1 10^3/uL (0.0-0.5); HEMATOCRIT 42.9 % (36.0-47.0); HEMOGLOBIN 13.9 g/dl (12.0-15.5); LYMPH # 1.8 10^3/uL (1.5-5.0); LYMPH % 22.3 % (24.0-44.0); MEAN CORPUSCULAR HEMOGLOBIN 29.3 pg (27.0-33.0); MEAN CORPUSCULAR HGB CONC 32.4 g/dl (32.0-36.5); MEAN CORPUSCULAR VOLUME 90.5 fl (80.0-96.0); MONO # 0.4 10^3/uL (0.0-0.8); MONO % 4.9 % (2.0-8.0); NEUTROPHILS # 5.6 10^3/uL (1.5-8.5); NEUTROPHILS % 70.5 % (36.0-66.0); PLATELET COUNT, AUTOMATED 173 10^3/uL (150-450); RED BLOOD COUNT 4.74 10^6/uL (4.00-5.40); WHITE BLOOD COUNT 7.9 10^3/uL (4.0-10.0)
[2020-09-24 12:10] LABS: ALBUMIN 3.7 GM/DL (3.2-5.2); ALT/SGPT 39 U/L (12-78); BILIRUBIN,TOTAL 0.4 MG/DL (0.2-1.0); BLOOD UREA NITROGEN 4 MG/DL (7-18); C REACTIVE PROTEIN QUANTITATIV 1.16 MG/DL (0.00-0.30); CALCIUM LEVEL 8.7 MG/DL (8.5-10.1); CARBON DIOXIDE LEVEL 26 MEQ/L (21-32); CHLORIDE LEVEL 110 MEQ/L (98-107); CPK CREATINE PHOSPHOKINASE 52 U/L (26-192); GLOMERULAR FILTRATION RATE > 60.0 (>58); GLUCOSE, FASTING 90 MG/DL (70-100); POTASSIUM SERUM 3.5 MEQ/L (3.5-5.1); SODIUM LEVEL 141 MEQ/L (136-145); TOTAL PROTEIN 6.9 GM/DL (6.4-8.2)
[2020-09-24 12:17] LABS: TOTAL 25(OH) VITAMIN D 67.4 NG/ML (30.0-100.0)
[2020-09-24 12:18] LABS: ERYTHROCYTE SEDIMENTATION RATE 12 mm/hr (0-20)
--- NOTE | 2020-09-24 21:40 | REP ---
INDICATION: PAIN IN UNSPECIFIED JOINT *LABS 1ST, XRY 2ND*. COMPARISON: None. TECHNIQUE: Four views of the bilateral sacroiliac joints. FINDINGS: Sacroiliac joints are symmetric and normal/age-appropriate. Surrounding osseous structures are intact and relatively normal. IMPRESSION: Normal symmetric bilateral sacroiliac joints. <Electronically signed by Paul Arenas > 09/24/20 [id number]
--- NOTE | 2020-09-24 21:49 | REP ---
INDICATION: PAIN IN UNSPECIFIED JOINT *LABS 1ST, XRY 2ND* COMPARISON: None. TECHNIQUE: AP, lateral, flexion/extension, bilateral oblique, and coned-down views. FINDINGS: Alignment and lordosis is maintained. The vertebral bodies including transverse process and spinous processes are intact and normal. There is no evidence for acute fracture / compression injury or subluxation. No evidence for spondylolysis or spondylolisthesis. Generalized age-related changes include very subtle increased sclerosis to the endplates with very subtle marginal spurring and mild facet hypertrophy. IMPRESSION: Mild age-related changes. <Electronically signed by Paul Arenas > 09/24/20 [id number]
--- NOTE | 2020-09-24 21:50 | REP ---
INDICATION: PAIN IN UNSPECIFIED JOINT *LABS 1ST, XRY 2ND* COMPARISON: None. TECHNIQUE: AP, lateral, bilateral oblique views right and left hand. FINDINGS: Osseous structures, joint spaces, and surrounding soft tissues are essentially age-appropriate with mild age-related changes noted. Deformity to the right 5th metacarpal bone may represent old healed fracture. No acute fracture or dislocation. IMPRESSION: Essentially symmetric age-related changes. No significant overt osteoarthritic findings noted. <Electronically signed by Paul Arenas > 09/24/20 [id number]
--- NOTE | 2020-09-24 21:54 | REP ---
INDICATION: PAIN IN UNSPECIFIED JOINT *LABS 1ST, XRY 2ND* COMPARISON: None. TECHNIQUE: AP, lateral, bilateral oblique views right and left foot. FINDINGS: Right foot demonstrates essentially age-appropriate osseous structures, joint spaces, and surrounding soft tissues. Evidence for prior open reduction and fixation involving medial malleolus and distal fibula. Lateral view demonstrates small calcaneal heel spur. Left foot demonstrates essentially age-appropriate osseous structures, joint spaces, and surrounding soft tissues. No overt arthritic changes. No evidence for acute or healed injury. Lateral view demonstrates small to moderate calcaneal heel spur. IMPRESSION: No significant osteoarthritic degenerative changes. As above. <Electronically signed by Paul Arenas > 09/24/20 [id number]
== END ==
LOC: M LAB 11:12
PROVIDERS: ATTEND Internal Medicine Rheumatology
DX: M77.31 Calcaneal spur, right foot (principal); M77.32 Calcaneal spur, left foot; M25.50 Pain in unspecified joint; E55.9 Vitamin D deficiency, unspecified

== ENCOUNTER → 2020-10-17 | Outpatient (CLI) | payer BC ==
--- NOTE | 2020-10-17 09:05 | REP ---
INDICATION: Six-month follow-up biopsy clip placement left breast 1 o'clock. COMPARISON: 04/03/2020 TECHNIQUE: Focused left breast ultrasonography was obtained at the 1 o'clock position in the region of a previous biopsy site which was performed 04/03/2020. FINDINGS: The prior exam showed a biopsy needle and deployment of a post biopsy clip at the 1 o'clock position. Today's exam shows an echogenic focus seen in left breast at the 1 o'clock position consistent with an unchanged biopsy clip. No abnormalities are identified. IMPRESSION: As above. Follow-up of a deployed biopsy clip. <Electronically signed by Oli Jamison > 10/17/20 [id number]
== END ==
LOC: M WHC 07:49
PROVIDERS: ATTEND Surgery
DX: N63.20 Unspecified lump in the left breast, unspecified quadrant (principal)

== ENCOUNTER 2021-02-04 11:24 | Emergency (ER) | payer BC ==
[~2021-02-04] VITALS: Ht 157.5 cm; Wt 74.5 kg
[2021-02-04 13:06] LABS: BASO % 0.4 % (0.0-1.0); EOS # 0.1 10^3/uL (0.0-0.5); EOS % 1.2 % (0.0-3.0); HEMATOCRIT 44.5 % (36.0-47.0); HEMOGLOBIN 14.5 g/dl (12.0-15.5); LYMPH # 1.7 10^3/uL (1.5-5.0); LYMPH % 15.6 % (24.0-44.0); MEAN CORPUSCULAR HEMOGLOBIN 28.8 pg (27.0-33.0); MEAN CORPUSCULAR HGB CONC 32.6 g/dl (32.0-36.5); MEAN CORPUSCULAR VOLUME 88.5 fl (80.0-96.0); MONO # 0.5 10^3/uL (0.0-0.8); MONO % 4.8 % (2.0-8.0); NEUTROPHILS # 8.6 10^3/uL (1.5-8.5); NEUTROPHILS % 77.5 % (36.0-66.0); PLATELET COUNT, AUTOMATED 225 10^3/uL (150-450); RED BLOOD COUNT 5.03 10^6/uL (4.00-5.40); WHITE BLOOD COUNT 11.1 10^3/uL (4.0-10.0)
[2021-02-04 13:38] LABS: AMPHETAMINES LEVEL URINE NEGATIVE (NEGATIVE); BARBITURATES URINE NEGATIVE (NEGATIVE); BENZODIAZEPINES URINE NEGATIVE (NEGATIVE); CANNABINOIDS URINE POSITIVE (NEGATIVE); COCAINE METABOLITE URINE NEGATIVE (NEGATIVE); METHADONE URINE NEGATIVE (NEGATIVE); OPIATES URINE NEGATIVE (NEGATIVE); PHENCYCLIDINE URINE NEGATIVE (NEGATIVE)
[2021-02-04 13:48] LABS: ALBUMIN 3.9 GM/DL (3.2-5.2); ALT/SGPT 70 U/L (12-78); BILIRUBIN,DIRECT 0.3 MG/DL (0.0-0.2); BILIRUBIN,TOTAL 0.4 MG/DL (0.2-1.0); BLOOD UREA NITROGEN 4 MG/DL (7-18); CALCIUM LEVEL 9.3 MG/DL (8.5-10.1); CARBON DIOXIDE LEVEL 27 MEQ/L (21-32); CHLORIDE LEVEL 108 MEQ/L (98-107); CREATININE FOR GFR 0.47 MG/DL (0.55-1.30); GLOMERULAR FILTRATION RATE > 60.0 (>58); GLUCOSE, FASTING 79 MG/DL (70-100); POTASSIUM SERUM 3.9 MEQ/L (3.5-5.1); SODIUM LEVEL 142 MEQ/L (136-145); THYROID STIMULATING HORMONE 0.669 uIU/ML (0.358-3.740); TOTAL 25(OH) VITAMIN D 38.6 NG/ML (30.0-100.0); TOTAL PROTEIN 7.5 GM/DL (6.4-8.2)
[2021-02-04 13:49] LABS: VITAMIN B12 LEVEL 518 PG/ML (247-911)
[2021-02-04 13:50] LABS: FOLATE 6.4 NG/ML (>5.4)
--- NOTE | 2021-02-04 15:57 | REPVR ---
PROCEDURE INFORMATION: Exam: MR Head Without Contrast Exam date and time: 02/04/2021 2:56 PM Age: 40 years old Clinical indication: Dizziness TECHNIQUE: Imaging protocol: MR of the head without contrast. COMPARISON: No relevant prior studies available. FINDINGS: Brain: No acute infarct identified on the diffusion-weighted imaging. No parenchymal hemorrhage. No evidence of brain parenchymal edema or intracranial mass effect. No significant white matter disease. Cerebral ventricles: Normal. No ventriculomegaly. Bones/joints: Unremarkable. Paranasal sinuses: Tiny retention cysts or polyps in the right maxillary and posterior left ethmoid sinuses. Trace ethmoid mucosal thickening. No air-fluid levels. Small retention cysts in the nasopharynx. Mastoid air cells: Normal as visualized. No mastoid effusion. Orbital cavity: Unremarkable. Soft tissues: Unremarkable. IMPRESSION: No evidence of acute infarct. Electronically signed by: Helena Holden On 02/04/2021 15:56:51 PM
--- NOTE | 2021-02-04 16:00 | REPVR ---
PROCEDURE INFORMATION: Exam: MRA Head Without Contrast; Arteriography Exam date and time: 02/04/2021 2:56 PM Age: 40 years old Clinical indication: Dizziness and giddiness TECHNIQUE: Imaging protocol: Magnetic resonance angiography head without contrast. Exam focused on the arteries. COMPARISON: No relevant prior studies available. FINDINGS: ANTERIOR CIRCULATION: Right internal carotid artery: Intracranial segment is patent with no significant stenosis. No aneurysm. Right middle cerebral artery: No occlusion or significant stenosis. No aneurysm. Right anterior cerebral artery: No occlusion or significant stenosis. No aneurysm. Left internal carotid artery: Intracranial segment is patent with no significant stenosis. No aneurysm. Left middle cerebral artery: No occlusion or significant stenosis. No aneurysm. Left anterior cerebral artery: No occlusion or significant stenosis. No aneurysm. POSTERIOR CIRCULATION: Right vertebral artery: No occlusion or significant stenosis. No aneurysm. Left vertebral artery: No occlusion or significant stenosis. No aneurysm. Basilar artery: No occlusion or significant stenosis. No aneurysm. Right posterior cerebral artery: No occlusion or significant stenosis. No aneurysm. Left posterior cerebral artery: No occlusion or significant stenosis. No aneurysm. IMPRESSION: No stenosis or occlusion. Electronically signed by: Helena Holden On 02/04/2021 15:59:50 PM
[2021-02-04 16:30] VITALS: BP 109/75
--- NOTE | 2021-02-05 19:32 | ECGEPIP ---
[facility] - ED Test Date: 2021-02-04 Pat Name: LAURLE BARRIOS Department: Room: - Gender: Female Holistic Nutritionist: JORGE : 1980 Requested By: SHABANA MARIE Order Number: [id number] Reading MD: Yeny Lopez Measurements Intervals [place] Rate: 89 P: 78 [place]: 138 QRS: 50 QRSD: 84 T: 42 QT: 370 QTc: 450 Interpretive Statements Normal sinus rhythm delayed r progression no prior Electronically Signed on 02-05-2021 19:31:53 EST by Yeny Lopez
== END 2021-02-04 16:48 | disposition home or self-care (01) ==
LOC: M ED 11:24
DX: R42 Dizziness and giddiness (principal); K21.9 Gastro-esophageal reflux disease without esophagitis; Z79.899 Other long term (current) drug therapy; F12.20 Cannabis dependence, uncomplicated; F17.210 Nicotine dependence, cigarettes, uncomplicated; Z88.8 Allergy status to other drugs, medicaments and biological substances

== ENCOUNTER → 2022-02-10 | Outpatient (REF) | payer BC ==
[~2022-02-10] MED LIST changes: +ZINC1TAB2 PO
[2022-02-10 13:25] LABS: BASO # 0.1 10^3/uL (0.0-0.2); BASO % 0.6 % (0.0-1.0); EOS # 0.1 10^3/uL (0.0-0.5); HEMOGLOBIN 14.6 g/dl (12.0-15.5); LYMPH # 1.9 10^3/uL (1.5-5.0); LYMPH % 23.2 % (24.0-44.0); MEAN CORPUSCULAR HEMOGLOBIN 28.4 pg (27.0-33.0); MEAN CORPUSCULAR HGB CONC 31.1 g/dl (32.0-36.5); MEAN CORPUSCULAR VOLUME 91.4 fl (80.0-96.0); MONO # 0.4 10^3/uL (0.0-0.8); MONO % 4.8 % (2.0-8.0); NEUTROPHILS # 5.7 10^3/uL (1.5-8.5); NEUTROPHILS % 69.9 % (36.0-66.0); PLATELET COUNT, AUTOMATED 146 10^3/uL (150-450); RED BLOOD COUNT 5.14 10^6/uL (4.00-5.40); WHITE BLOOD COUNT 8.1 10^3/uL (4.0-10.0)
[2022-02-10 13:43] LABS: ERYTHROCYTE SEDIMENTATION RATE 29 mm/hr (0-20)
[2022-02-10 13:49] LABS: C REACTIVE PROTEIN QUANTITATIV < 0.40 MG/DL (<1.0)
[2022-02-10 13:50] LABS: CPK CREATINE PHOSPHOKINASE 84 U/L (34-145); LDH LACTATE DEHYDROGENASE 139 U/L (120-246)
[2022-02-10 13:53] LABS: ALBUMIN 3.9 G/DL (3.2-5.2); ALKALINE PHOSPHATASE 240 U/L (46-116); ALT/SGPT 53 U/L (7.0-40); AST/SGOT 27 U/L (<34); BILIRUBIN,TOTAL 0.3 MG/DL (0.3-1.2); BLOOD UREA NITROGEN < 5 MG/DL (9-23); CALCIUM LEVEL 8.9 MG/DL (8.5-10.1); CARBON DIOXIDE LEVEL 27 MMOL/L (20-31); CHLORIDE LEVEL 103 MMOL/L (98-107); CREATININE FOR GFR 0.57 MG/DL (0.55-1.30); GLOMERULAR FILTRATION RATE > 60.0 (>58); GLUCOSE, FASTING 93 MG/DL (60-100); SODIUM LEVEL 139 MMOL/L (136-145); TOTAL PROTEIN 7.3 G/DL (5.7-8.2)
== END ==
LOC: M SFHCRHEU 09:37
PROVIDERS: ATTEND Internal Medicine Rheumatology
DX: M25.50 Pain in unspecified joint (principal); R76.8 Other specified abnormal immunological findings in serum; R79.89 Other specified abnormal findings of blood chemistry; E55.9 Vitamin D deficiency, unspecified; Z72.0 Tobacco use

== ENCOUNTER 2022-05-18 10:56 | Day surgery (SDC) | payer BC ==
[~2022-05-18] VITALS: Ht 162.6 cm; Wt 79.4 kg
[~2022-05-18 10:56] MED LIST changes: +FOLI1TAB11 PO; +LEXA5TAB13 PO; +LIDOCAINE 2% 100MG/5ML SDV (FOR ANES.) As Ordered ONE; +NS 1,000 ML IV ONE; +URSO1TAB8 PO; +ZOLP5TAB PO; +propofoL 200 MG/20 ML VIAL As Ordered ONE
[2022-05-18] MEDS ORDERED: fentaNYL 100 MCG/2 ML INJECTION As Ordered ONE (11:52)
[2022-05-18 13:13] VITALS: BP 123/70
== END 2022-05-18 13:15 | disposition home or self-care (01) ==
LOC: M OPP 10:56
PROVIDERS: ATTEND Internal Medicine Gastroenterology
DX: Z12.11 Encounter for screening for malignant neoplasm of colon (principal); Z86.010 Personal history of colon polyps; D12.7 Benign neoplasm of rectosigmoid junction; D12.4 Benign neoplasm of descending colon; K64.4 Residual hemorrhoidal skin tags; K64.8 Other hemorrhoids; K22.89 Other specified disease of esophagus; Z98.0 Intestinal bypass and anastomosis status; M79.7 Fibromyalgia; K74.60 Unspecified cirrhosis of liver; F17.200 Nicotine dependence, unspecified, uncomplicated; Z98.84 Bariatric surgery status; Z79.899 Other long term (current) drug therapy; Z88.8 Allergy status to other drugs, medicaments and biological substances
CPT/HCPCS: 43239; 45380; 45385; 88305; J3010

== ENCOUNTER → 2022-06-26 | Outpatient (CLI) | payer BC ==
[~2022-06-26] MED LIST changes: +CYCL-707; +DULO1CAP5; +HYDR-3713 PO; -LIDOCAINE 2% 100MG/5ML SDV (FOR ANES.) As Ordered ONE; -NS 1,000 ML IV ONE; +ZOLP12.518; -propofoL 200 MG/20 ML VIAL As Ordered ONE
[2022-06-26 10:55] LABS: BASO % 0.3 % (0.0-1.0); EOS # 0.1 10^3/uL (0.0-0.5); EOS % 0.5 % (0.0-3.0); HEMATOCRIT 42.3 % (36.0-47.0); HEMOGLOBIN 13.5 g/dl (12.0-15.5); LYMPH # 2.5 10^3/uL (1.5-5.0); LYMPH % 20.6 % (24.0-44.0); MEAN CORPUSCULAR HEMOGLOBIN 27.8 pg (27.0-33.0); MEAN CORPUSCULAR HGB CONC 31.9 g/dl (32.0-36.5); MONO # 0.8 10^3/uL (0.0-0.8); MONO % 6.6 % (2.0-8.0); NEUTROPHILS # 8.8 10^3/uL (1.5-8.5); NEUTROPHILS % 71.4 % (36.0-66.0); PLATELET COUNT, AUTOMATED 142 10^3/uL (150-450); RED BLOOD COUNT 4.86 10^6/uL (4.00-5.40); WHITE BLOOD COUNT 12.3 10^3/uL (4.0-10.0)
[2022-06-26 11:10] LABS: INR 0.92; PROTHROMBIN TIME 12.6 SECONDS (12.5-14.5)
[2022-06-26 11:11] LABS: PARTIAL THROMBOPLASTIN TIME 22.8 SECONDS (24.8-34.2)
[2022-06-26 11:28] LABS: ERYTHROCYTE SEDIMENTATION RATE 38 mm/hr (0-20)
[2022-06-26 11:33] LABS: ALBUMIN 3.6 G/DL (3.2-5.2); ALKALINE PHOSPHATASE 239 U/L (46-116); ALT/SGPT 41 U/L (7.0-40); AST/SGOT 34 U/L (<34); BILIRUBIN,DIRECT 0.2 MG/DL (<0.4); BILIRUBIN,TOTAL 0.4 MG/DL (0.3-1.2); BLOOD UREA NITROGEN 7 MG/DL (9-23); CALCIUM LEVEL 9.1 MG/DL (8.5-10.1); CARBON DIOXIDE LEVEL 30 MMOL/L (20-31); CHLORIDE LEVEL 104 MMOL/L (98-107); CREATININE FOR GFR 0.65 MG/DL (0.55-1.30); GLOMERULAR FILTRATION RATE > 60.0 (>58); GLUCOSE, FASTING 101 MG/DL (60-100); IRON (FE) 82 UG/DL (50-170); PERCENT SATURATION 23.7 % (13.2-45.0); POTASSIUM SERUM 3.5 MMOL/L (3.5-5.1); SODIUM LEVEL 140 MMOL/L (136-145); TOTAL IRON BINDING CAPACITY 346 UG/DL (250-425); TOTAL PROTEIN 6.6 G/DL (5.7-8.2); VITAMIN B12 LEVEL 247 PG/ML (211-911)
[2022-06-26 11:34] LABS: TOTAL 25(OH) VITAMIN D 59.6 NG/ML (20.0-100.0)
[2022-06-26 11:35] LABS: FOLATE 17.9 NG/ML (>5.4)
[2022-06-29 14:08] LABS: COPPER PLASMA 155 ug/dL (80-158)
[2022-07-01 06:08] LABS: HLA CLASS 1 ANTIBODY Negative (Negative); IIb/IIIa ANTIBODY Negative (Negative); Ia/IIa ANTIBODY Negative (Negative); Ib/IX ANTIBODY Negative (Negative); VITAMIN B1 LEVEL WHOLE BLOOD 119.9 nmol/L (66.5-200.0)
== END ==
LOC: M LAB 10:01
PROVIDERS: ATTEND Internal Medicine Gastroenterology
DX: R94.5 Abnormal results of liver function studies (principal)

== ENCOUNTER 2022-06-28 09:51 | Emergency (ER) | payer BC ==
[~2022-06-28] VITALS: Ht 162.6 cm; Wt 77.3 kg
[~2022-06-28 09:51] MED LIST changes: -CYCL-707; -DULO1CAP5; -HYDR-3713 PO; -ZOLP12.518
[2022-06-28] MEDS ORDERED: DULO1CAP5 (10:07)
[2022-06-28] MEDS ORDERED: CYCL-707 (10:07)
[2022-06-28] MEDS ORDERED: ZOLP12.518 (10:07)
[2022-06-28] MEDS ORDERED: ONDANSETRON 4MG 2ML VIAL IV ONE (11:30)
[2022-06-28] MEDS ORDERED: MORPHINE 2 MG/ML 1ML VIAL IV ONE (11:30)
[2022-06-28 12:10] LABS: BASO # 0.1 10^3/uL (0.0-0.2); BASO % 0.4 % (0.0-1.0); EOS # 0.1 10^3/uL (0.0-0.5); EOS % 0.8 % (0.0-3.0); HEMATOCRIT 44.1 % (36.0-47.0); LYMPH # 1.7 10^3/uL (1.5-5.0); LYMPH % 15.5 % (24.0-44.0); MEAN CORPUSCULAR HEMOGLOBIN 27.6 pg (27.0-33.0); MEAN CORPUSCULAR HGB CONC 31.7 g/dl (32.0-36.5); MONO # 0.7 10^3/uL (0.0-0.8); MONO % 6.5 % (2.0-8.0); NEUTROPHILS # 8.5 10^3/uL (1.5-8.5); NEUTROPHILS % 75.8 % (36.0-66.0); PLATELET COUNT, AUTOMATED 156 10^3/uL (150-450); RED BLOOD COUNT 5.07 10^6/uL (4.00-5.40); WHITE BLOOD COUNT 11.2 10^3/uL (4.0-10.0)
[2022-06-28 12:21] LABS: ERYTHROCYTE SEDIMENTATION RATE 55 mm/hr (0-20)
[2022-06-28 12:25] LABS: LIPASE 22 U/L (12-53)
[2022-06-28 12:27] LABS: ALBUMIN 3.4 G/DL (3.2-5.2); ALKALINE PHOSPHATASE 313 U/L (46-116); ALT/SGPT 83 U/L (7.0-40); AST/SGOT 94 U/L (<34); BILIRUBIN,DIRECT 0.3 MG/DL (<0.4); BILIRUBIN,TOTAL 0.6 MG/DL (0.3-1.2); BLOOD UREA NITROGEN 6 MG/DL (9-23); CALCIUM LEVEL 8.8 MG/DL (8.5-10.1); CARBON DIOXIDE LEVEL 28 MMOL/L (20-31); CHLORIDE LEVEL 104 MMOL/L (98-107); CREATININE FOR GFR 0.56 MG/DL (0.55-1.30); GLOMERULAR FILTRATION RATE > 60.0 (>58); GLUCOSE, FASTING 103 MG/DL (60-100); POTASSIUM SERUM 4.1 MMOL/L (3.5-5.1); SODIUM LEVEL 139 MMOL/L (136-145); TOTAL PROTEIN 6.6 G/DL (5.7-8.2)
[2022-06-28] MEDS: GASTROGRAFIN SOLUTION 30ML PO SCH ×2 (12:43→13:15)
[2022-06-28] MEDS ORDERED: ISOVUE-370 76% 100ML VIAL As Ordered ONE (14:02)
[2022-06-28] MEDS ORDERED: MORPHINE 4 MG/ML 1ML VIAL IV ONE (16:25)
[2022-06-28] MEDS ORDERED: HYDR-3713 PO (17:54)
[2022-06-28 18:05] VITALS: BP 143/91
== END 2022-06-28 18:13 | disposition home or self-care (01) ==
LOC: M ED 09:51
DX: R10.10 Upper abdominal pain, unspecified (principal); K83.8 Other specified diseases of biliary tract; K21.9 Gastro-esophageal reflux disease without esophagitis; M79.7 Fibromyalgia; Q44.7 Other congenital malformations of liver; Z98.84 Bariatric surgery status; F17.200 Nicotine dependence, unspecified, uncomplicated; Z88.6 Allergy status to analgesic agent; Z79.899 Other long term (current) drug therapy
CPT/HCPCS: 71260; 74177; 74181; 80048; 80076; 81001; 83605; 83690; 84702; 85025; 85652; 86140; 87040; 87088; 87186; 93005; 96374; 96375; 96376; 99284; J2405; Q9963; Q9967

== ENCOUNTER → 2023-01-15 | Outpatient (CLI) | payer BC ==
[~2023-01-15] MED LIST changes: +CYCL-707; +DULO1CAP5; +HYDR-3713 PO; +ZOLP12.518
== END ==
LOC: M LAB 10:33
PROVIDERS: ATTEND Allergy & Immunology Allergy
DX: L50.1 Idiopathic urticaria (principal); Z53.9 Procedure and treatment not carried out, unspecified reason

== ENCOUNTER → 2023-01-17 | Outpatient (CLI) | payer BC ==
[2023-01-17 12:12] LABS: BASO # 0.1 10^3/uL (0.0-0.2); BASO % 0.6 % (0.0-1.0); EOS # 0.1 10^3/uL (0.0-0.5); EOS % 0.8 % (0.0-3.0); HEMATOCRIT 44.1 % (36.0-47.0); HEMOGLOBIN 14.7 g/dl (12.0-15.5); LYMPH # 1.9 10^3/uL (1.5-5.0); LYMPH % 20.9 % (24.0-44.0); MEAN CORPUSCULAR HEMOGLOBIN 30.2 pg (27.0-33.0); MEAN CORPUSCULAR HGB CONC 33.3 g/dl (32.0-36.5); MEAN CORPUSCULAR VOLUME 90.7 fl (80.0-96.0); MONO # 0.5 10^3/uL (0.0-0.8); MONO % 5.3 % (2.0-8.0); NEUTROPHILS # 6.5 10^3/uL (1.5-8.5); PLATELET COUNT, AUTOMATED 176 10^3/uL (150-450); RED BLOOD COUNT 4.86 10^6/uL (4.00-5.40); WHITE BLOOD COUNT 9.1 10^3/uL (4.0-10.0)
[2023-01-17 12:39] LABS: COMPLEMENT C3 166.1 MG/DL (90.0-170.0); COMPLEMENT C4 35.7 MG/DL (12-36)
== END ==
LOC: M LAB 11:25
PROVIDERS: ATTEND Allergy & Immunology Allergy
DX: L50.1 Idiopathic urticaria (principal)

== ENCOUNTER → 2023-11-16 | Outpatient (CLI) | payer BC ==
[~2023-11-16] MED LIST changes: +BAYE325T13 PO; +LIDOCAINE 1% MDV 20ML VIAL As Ordered ONE; +MIDO5TA; -ZOLP12.518; +ZOLP12.535
[2023-11-16 08:10] VITALS: TEMP 97.7
[2023-11-16 08:41] LABS: BASO # 0.1 10^3/uL (0.0-0.2); BASO % 0.7 % (0.0-1.0); EOS # 0.1 10^3/uL (0.0-0.5); EOS % 1.6 % (0.0-3.0); HEMATOCRIT 43.7 % (36.0-47.0); HEMOGLOBIN 14.3 g/dl (12.0-15.5); LYMPH # 1.6 10^3/uL (1.5-5.0); LYMPH % 19.7 % (24.0-44.0); MEAN CORPUSCULAR HEMOGLOBIN 29.7 pg (27.0-33.0); MEAN CORPUSCULAR HGB CONC 32.7 g/dl (32.0-36.5); MEAN CORPUSCULAR VOLUME 90.9 fl (80.0-96.0); MONO # 0.5 10^3/uL (0.0-0.8); MONO % 5.8 % (2.0-8.0); NEUTROPHILS # 5.9 10^3/uL (1.5-8.5); NEUTROPHILS % 71.8 % (36.0-66.0); PLATELET COUNT, AUTOMATED 157 10^3/uL (150-450); RED BLOOD COUNT 4.81 10^6/uL (4.00-5.40); WHITE BLOOD COUNT 8.2 10^3/uL (4.0-10.0)
[2023-11-16 09:22] VITALS: BP 148/81; O2SAT 99
== END ==
LOC: M IRPRO 07:59
PROVIDERS: ATTEND Dietitian, Registered
DX: D50.9 Iron deficiency anemia, unspecified (principal)

== ENCOUNTER 2024-01-24 09:45 | Emergency (ER) | payer BC ==
[~2024-01-24] VITALS: Ht 157.5 cm; Wt 75.8 kg
[~2024-01-24 09:45] MED LIST changes: -LIDOCAINE 1% MDV 20ML VIAL As Ordered ONE
[2024-01-24 10:14] VITALS: TEMP 98.2
[2024-01-24 10:20] VITALS: BP 145/74; O2SAT 99
[2024-01-24] MEDS ORDERED: GABA-1171 (10:32)
[2024-01-24] MEDS ORDERED: LEXA1TAB (10:32)
[2024-01-24] MEDS ORDERED: URSO1TAB8 (10:32)
[2024-01-24] MEDS ORDERED: POTA-136 (10:32)
== END 2024-01-24 10:55 | disposition home or self-care (01) ==
LOC: M ED 09:45
DX: R00.2 Palpitations (principal); I49.8 Other specified cardiac arrhythmias; D50.9 Iron deficiency anemia, unspecified; F41.9 Anxiety disorder, unspecified; F32.A Depression, unspecified; Z88.8 Allergy status to other drugs, medicaments and biological substances; Z79.1 Long term (current) use of non-steroidal anti-inflammatories (NSAID); Z79.899 Other long term (current) drug therapy

== ENCOUNTER → 2024-03-06 | Outpatient (CLI) | payer BC ==
[~2024-03-06] MED LIST changes: +FLUD0.1T; +GABA-1171; +LEXA1TAB; +METO1TAB87; +POTA-136; +PROHANCE 279.3MG/ML 15ML VIAL As Ordered ONE; +URSO1TAB8
== END ==
LOC: M RAD 16:16
PROVIDERS: ATTEND Internal Medicine Cardiovascular Disease
DX: D35.2 Benign neoplasm of pituitary gland (principal); E23.6 Other disorders of pituitary gland; E27.9 Disorder of adrenal gland, unspecified
CPT/HCPCS: 70553; A9576

== ENCOUNTER → 2024-03-15 | Outpatient (CLI) | payer BC | LOC: M RAD 13:48 | PROVIDERS: ATTEND Internal Medicine Cardiovascular Disease | DX: D35.2 Benign neoplasm of pituitary gland (principal); E23.6 Other disorders of pituitary gland; E27.9 Disorder of adrenal gland, unspecified; N28.89 Other specified disorders of kidney and ureter; R16.0 Hepatomegaly, not elsewhere classified; R93.2 Abnormal findings on diagnostic imaging of liver and biliary tract; Z90.49 Acquired absence of other specified parts of digestive tract | CPT/HCPCS: 74183; A9576 ==

== ENCOUNTER → 2024-05-24 | Outpatient (CLI) | payer BC ==
[~2024-05-24] MED LIST changes: -PROHANCE 279.3MG/ML 15ML VIAL As Ordered ONE
[2024-05-24 09:32] LABS: BASO % 0.4 % (0.0-1.0); EOS # 0.1 10^3/uL (0.0-0.5); EOS % 1.1 % (0.0-3.0); HEMATOCRIT 46.3 % (36.0-47.0); LYMPH # 1.5 10^3/uL (1.5-5.0); LYMPH % 16.3 % (24.0-44.0); MEAN CORPUSCULAR HEMOGLOBIN 29.1 pg (27.0-33.0); MEAN CORPUSCULAR HGB CONC 32.4 g/dl (32.0-36.5); MEAN CORPUSCULAR VOLUME 89.7 fl (80.0-96.0); MONO # 0.5 10^3/uL (0.0-0.8); MONO % 5.3 % (2.0-8.0); NEUTROPHILS # 7.1 10^3/uL (1.5-8.5); NEUTROPHILS % 76.6 % (36.0-66.0); PLATELET COUNT, AUTOMATED 142 10^3/uL (150-450); RED BLOOD COUNT 5.16 10^6/uL (4.00-5.40); WHITE BLOOD COUNT 9.2 10^3/uL (4.0-10.0)
[2024-05-24 10:05] LABS: IRON (FE) 93 UG/DL (50-170); PERCENT SATURATION 30.6 % (13.2-45.0); TOTAL IRON BINDING CAPACITY 304 UG/DL (250-425)
[2024-05-24 10:09] LABS: FERRITIN 142.6 NG/ML (7.3-270.7)
[2024-05-24 10:11] LABS: ALBUMIN 3.6 G/DL (3.2-5.2); ALKALINE PHOSPHATASE 396 U/L (35-104); ALT/SGPT 31 U/L (7.0-40); AST/SGOT 33 U/L (<34); BILIRUBIN,TOTAL 0.5 MG/DL (0.3-1.2); BLOOD UREA NITROGEN < 5 MG/DL (9-23); CALCIUM LEVEL 9.3 MG/DL (8.5-10.1); CARBON DIOXIDE LEVEL 30 MMOL/L (20-31); CHLORIDE LEVEL 107 MMOL/L (98-107); CREATININE FOR GFR 0.51 MG/DL (0.55-1.30); GLOMERULAR FILTRATION RATE > 90.0 (>58); GLUCOSE, FASTING 100 MG/DL (60-100); POTASSIUM SERUM 3.8 MMOL/L (3.5-5.1); SODIUM LEVEL 145 MMOL/L (136-145); TOTAL PROTEIN 7.1 G/DL (5.7-8.2); VITAMIN B12 LEVEL 395 PG/ML (211-911)
== END ==
LOC: M LAB 09:13
PROVIDERS: ATTEND Nurse Practitioner Women's Health
DX: D50.9 Iron deficiency anemia, unspecified (principal)

== ENCOUNTER 2024-09-09 03:10 | Emergency (ER) | payer BC ==
[~2024-09-09] VITALS: Ht 157.5 cm; Wt 70.0 kg
[~2024-09-09 03:10] MED LIST changes: -AMBI5TAB PO; -FLUD0.1T; +FLUD0.1T PO; -HYDR-3363; +HYDR-3363 PO; -LEXA1TAB; +LEXA1TAB PO; -METO1TAB87; +METO1TAB87 PO; +URSO1TAB2 PO; -URSO1TAB8; -URSO1TAB8 PO; +ZOLP-532 PO
[2024-09-09 03:43] LABS: PLATELET COUNT, AUTOMATED 134 10^3/uL (150-450)
[2024-09-09 04:05] LABS: AMPHETAMINES LEVEL URINE NEGATIVE (NEGATIVE); BARBITURATES URINE NEGATIVE (NEGATIVE); BENZODIAZEPINES URINE NEGATIVE (NEGATIVE); COCAINE METABOLITE URINE NEGATIVE (NEGATIVE); METHADONE URINE NEGATIVE (NEGATIVE); OPIATES URINE NEGATIVE (NEGATIVE); PHENCYCLIDINE URINE NEGATIVE (NEGATIVE)
[2024-09-09 04:09] LABS: ETHYL ALCOHOL (ETHANOL) 0.171 % (0.000-0.010)
[2024-09-09 04:11] LABS: SALICYLATE LEVEL < 3.0 MG/DL (<30)
[2024-09-09 04:17] LABS: CANNABINOIDS URINE POSITIVE (NEGATIVE)
[2024-09-09 04:38] LABS: ALT/SGPT 18 U/L (7.0-40); AST/SGOT 21 U/L (<34); CALCIUM LEVEL 9.0 MG/DL (8.5-10.1); CARBON DIOXIDE LEVEL 30 MMOL/L (20-31); CHLORIDE LEVEL 108 MMOL/L (98-107); CREATININE FOR GFR 0.61 MG/DL (0.55-1.30); GLOMERULAR FILTRATION RATE > 90.0 (>58); POTASSIUM SERUM 4.0 MMOL/L (3.5-5.1); SODIUM LEVEL 147 MMOL/L (136-145)
[2024-09-09 08:25] VITALS: TEMP 98.2; O2SAT 99
[2024-09-09] MEDS: METOPROLOL SUCC. 25 MG *XL* TAB PO ONE (08:46)
[2024-09-09] MEDS ORDERED: ZOLP10TA2 PO (09:26)
[2024-09-09] MEDS ORDERED: MIDO5TA PO (09:27)
[2024-09-09] MEDS ORDERED: MONT10TA97 PO (09:27)
[2024-09-09] MEDS ORDERED: BUSP10TA PO (09:27)
[2024-09-09] MEDS ORDERED: HOME MED LIST COMPLETE! XX SCH (09:30)
[2024-09-09 10:13] VITALS: BP 147/91
== END 2024-09-09 10:28 | disposition home or self-care (01) ==
LOC: M ED 03:10
DX: F43.0 Acute stress reaction (principal); I10 Essential (primary) hypertension; F17.210 Nicotine dependence, cigarettes, uncomplicated; F12.10 Cannabis abuse, uncomplicated; F10.10 Alcohol abuse, uncomplicated; Z88.6 Allergy status to analgesic agent; Z79.1 Long term (current) use of non-steroidal anti-inflammatories (NSAID); Z79.899 Other long term (current) drug therapy

== ENCOUNTER 2025-02-03 15:48 | Emergency (ER) | payer BC ==
[~2025-02-03] VITALS: Ht 157.5 cm; Wt 66.7 kg
[~2025-02-03 15:48] MED LIST changes: +BUSP10TA PO; +MIDO5TA PO; +MONT10TA97 PO; +ZOLP10TA11 PO; -ZOLP5TAB PO; +ZOLP5TAB9 PO
[2025-02-03 17:02] LABS: PLATELET COUNT, AUTOMATED 228 10^3/uL (150-450)
[2025-02-03 17:21] LABS: BASO # 0.1 10^3/uL (0.0-0.2); BASO % 0.8 % (0.0-1.0); EOS # 0.1 10^3/uL (0.0-0.5); EOS % 1.2 % (0.0-3.0); LYMPH # 2.5 10^3/uL (1.5-5.0); LYMPH % 20.5 % (24.0-44.0); MONO # 0.8 10^3/uL (0.0-0.8); MONO % 6.9 % (2.0-8.0); NEUTROPHILS # 8.5 10^3/uL (1.5-8.5); NEUTROPHILS % 70.1 % (36.0-66.0)
[2025-02-03 17:25] LABS: ATYPICAL LYMPH 4 % (0-5); EOSINOPHILS 1 % (0-3); LYMPHOCYTES 28 % (16-44); MONOCYTES 3 % (0-5); NEUTROPHILS 64 % (28-66); PLATELET ESTIMATE NORMAL (NORMAL)
[2025-02-03 17:27] LABS: ALT/SGPT 26 U/L (7.0-40); AST/SGOT 21 U/L (<34); CALCIUM LEVEL 9.0 MG/DL (8.5-10.1); CARBON DIOXIDE LEVEL 26 MMOL/L (20-31); CHLORIDE LEVEL 108 MMOL/L (98-107); CREATININE FOR GFR 0.51 MG/DL (0.55-1.30); GLOMERULAR FILTRATION RATE > 90.0 (>58); POTASSIUM SERUM 3.9 MMOL/L (3.5-5.1); SODIUM LEVEL 142 MMOL/L (136-145)
[2025-02-03] MEDS ORDERED: ISOVUE-370 76% 100 ML VIAL As Ordered ONE (17:56)
[2025-02-03 20:24] LABS: KETONE, URINE AUTO RFX NEGATIVE (NEGATIVE); LEUKOCYTE ESTERASE UR AUTO RFX NEGATIVE (NEGATIVE); NITRITE, URINE AUTO RFX NEGATIVE (NEGATIVE); RBC, URINE AUTO RFX 1 /HPF (0-3); SQUAM EPITHELIAL CELL UR AURFX 3 /HPF (0-6); WBC, URINE AUTO RFX 0 /HPF (0-3)
[2025-02-03] MEDS ORDERED: META28.32 PO (20:40)
[2025-02-03] MEDS ORDERED: MIRA3350 PO (20:40)
[2025-02-03 22:28] VITALS: BP 152/71; TEMP 97.8; O2SAT 97
== END 2025-02-03 22:36 | disposition home or self-care (01) ==
LOC: M ED 15:48
DX: K59.00 Constipation, unspecified (principal); R10.9 Unspecified abdominal pain; R93.2 Abnormal findings on diagnostic imaging of liver and biliary tract; F17.210 Nicotine dependence, cigarettes, uncomplicated; Z88.6 Allergy status to analgesic agent; Z79.1 Long term (current) use of non-steroidal anti-inflammatories (NSAID); Z79.899 Other long term (current) drug therapy
CPT/HCPCS: 36415; 74177; 80048; 80076; 81001; 82140; 83690; 85025; 99284; Q9967